=== PATIENT | female | born 1995 | race Two or more races ===

== ENCOUNTER 2017-01-26 15:50 | Emergency (ER) | payer SELFPAY ==
[~2017-01-26] VITALS: Ht 157.5 cm; Wt 70.6 kg
[2017-01-26 16:18] VITALS: BP 120/57
== END 2017-01-26 17:55 | disposition left against medical advice (07) ==
LOC: ED 17:20
DX: Z32.01 Encounter for pregnancy test, result positive (principal)

== ENCOUNTER 2017-01-26 18:14 | Emergency (ER) | payer SELFPAY ==
[~2017-01-26] VITALS: Ht 157.5 cm; Wt 70.6 kg
[2017-01-26 18:28] VITALS: BP 120/57
== END 2017-01-26 19:53 | disposition home or self-care (01) ==
LOC: ED 19:40
DX: R10.30 Lower abdominal pain, unspecified (principal)
CPT/HCPCS: 36415; 84702; 99283